=== PATIENT | female | born 1985 | race Caucasian/White ===

== ENCOUNTER 2017-04-25 01:34 | Emergency (ER) | payer SELFPAY ==
[~2017-04-25] VITALS: Ht 170.2 cm; Wt 82.1 kg
[2017-04-25] MEDS ORDERED: ASPIRIN 81 MG TABLET CHEW ONE (02:07)
[2017-04-25 02:28] LABS: BLOOD UREA NITROGEN 7 mg/dL (7-18)
[2017-04-25] MEDS ORDERED: ASPIRIN 81 MG TABLET CHEW PO ONE (02:30)
[2017-04-25 02:39] LABS: IS PT STATUS REG ER OR PRE ER? YES
[2017-04-25 03:27] VITALS: BP 114/76
== END 2017-04-25 03:29 | disposition home or self-care (01) ==
LOC: ED 03:19
DX: S29.012A Strain of muscle and tendon of back wall of thorax, initial encounter (principal); R07.89 Other chest pain; F14.10 Cocaine abuse, uncomplicated; F41.9 Anxiety disorder, unspecified; X58.XXXA Exposure to other specified factors, initial encounter; Y93.89 Activity, other specified; Y92.89 Other specified places as the place of occurrence of the external cause; Y99.8 Other external cause status
CPT/HCPCS: 36415; 71020; 80048; 82040; 84484; 85025; 93005; 99285

== ENCOUNTER 2017-09-14 13:02 | Emergency (ER) | payer MEDICAID ==
[~2017-09-14] VITALS: Ht 170.2 cm; Wt 80.5 kg
[2017-09-14] MEDS ORDERED: SODIUM CHLORIDE FLUSH 10ML SYR IVF ONE (13:30)
[2017-09-14] MEDS ORDERED: LORazepam 2 MG/ML, 1ML IVPush ONE (13:30)
[2017-09-14] MEDS ORDERED: SODIUM CHLORIDE 0.9% 1,000ML IVBOLUS ONE (13:30)
[2017-09-14] MEDS ORDERED: KETOROLAC 60 MG/2 ML IV ONE (13:30)
[2017-09-14] MEDS ORDERED: KETOROLAC 30 MG/1 ML ONE ×2 (13:48→14:21)
[2017-09-14] MEDS ORDERED: LORazepam 2 MG/ML, 1ML ONE ×2 (13:49→14:21)
[2017-09-14 13:52] LABS: HEMATOCRIT 53.7 % (34.6-47.8); HEMOGLOBIN 18.5 g/dL (11.7-16.4); WHITE BLOOD COUNT 7.5 x10^3/uL (3.4-10)
[2017-09-14 14:05] LABS: ASPARTATE AMINO TRANSFERASE 42 U/L (15-37); BLOOD UREA NITROGEN 6 mg/dL (7-18)
[2017-09-14 14:11] LABS: IS PT STATUS REG ER OR PRE ER? YES
[2017-09-14 14:15] VITALS: BP 124/79
== END 2017-09-14 16:17 | disposition home or self-care (01) ==
LOC: ED 14:21
DX: R07.89 Other chest pain (principal); F41.1 Generalized anxiety disorder; E86.0 Dehydration
CPT/HCPCS: 36415; 71010; 80053; 83880; 84484; 84703; 85025; 85379; 93005; 96361; 96374; 96375; 99285; J1885; J2060; J7030